=== PATIENT | male | born 1965 | race African-American/Black ===

== ENCOUNTER 2017-02-20 09:54 | Day surgery (SDC) | payer OTHER ==
[~2017-02-20] VITALS: Ht 162.6 cm; Wt 56.7 kg
[~2017-02-20 09:54] MED LIST: ENDOCET 5-3251 EACH PO; NEURONTIN100 MG PO
== END 2017-02-20 11:10 | disposition home or self-care (01) ==
LOC: PAIN 09:54 → SDC 10:15 → PAIN 11:10
DX: M54.2 Cervicalgia (principal); Z53.8 Procedure and treatment not carried out for other reasons
CPT/HCPCS: J1100

== ENCOUNTER → 2017-03-14 | Outpatient (CLI) | payer OTHER | END | disposition home or self-care (01) | LOC: MRI 10:30 → RAD 11:00 → MRI 11:00 | DX: M47.892 Other spondylosis, cervical region (principal); M48.02 Spinal stenosis, cervical region | CPT/HCPCS: 72141 ==

== ENCOUNTER 2017-03-23 09:51 | Day surgery (SDC) | payer OTHER ==
[~2017-03-23] VITALS: Ht 162.6 cm; Wt 57.2 kg
== END 2017-03-23 11:42 | disposition home or self-care (01) ==
LOC: PAIN 09:51 → SDC 10:15 → PAIN 11:42
DX: M50.123 Cervical disc disorder at C6-C7 level with radiculopathy (principal); M47.22 Other spondylosis with radiculopathy, cervical region; M48.02 Spinal stenosis, cervical region; M25.78 Osteophyte, vertebrae
CPT/HCPCS: J1100; J2250; J3010

== ENCOUNTER 2017-10-27 22:44 | Emergency (ER) | payer OTHER ==
[~2017-10-27] VITALS: Ht 162.6 cm; Wt 50.4 kg
[2017-10-28 00:47] LABS: BASOPHIL (%) 0.3 % (0-1); EOSINOPHIL (%) 0.5 % (0-5); EOSINOPHIL COUNT 0.1 K/uL (0-0.3); HEMOGLOBIN 11.2 G/DL (12.5-16.6); IMMATURE GRANULOCYTE (%) 0.5 % (0.0-0.7); LYMPHOCYTE (%) 14.9 % (15-42); LYMPHOCYTE COUNT 1.9 K/uL (1.0-2.8); MCH 25.3 PG (29.0-34.0); MCV 79.2 FL (86-99); MONOCYTE COUNT 0.9 K/uL (0-0.8); NEUTROPHIL (%) 76.8 % (45-76); NEUTROPHIL COUNT 9.8 K/uL (1.8-6.4); PLATELET COUNT 286 K/uL (156-360); RBC DIS.WIDTH-SD 37.4 % (39-53); RED BLOOD COUNT 4.42 M/uL (4.00-5.50); WHITE BLOOD COUNT 12.8 K/uL (4.1-10.2)
[2017-10-28 00:56] LABS: CHLORIDE 105 mEq/L (99-109); POTASSIUM 3.5 mEq/L (3.7-5.4); SODIUM 140 mEq/L (136-147)
[2017-10-28 00:58] LABS: GLUCOSE 97 mg/dL (70-99)
[2017-10-28 01:02] LABS: GFR ESTIMATE (CALCULATED) > 59 mL/min/ (58.99-99999)
[2017-10-28 01:03] LABS: UREA NITROGEN (BUN) 24 mg/dL (9-23)
[2017-10-28 04:12] LABS: APPEARANCE CLEAR ((CLEAR)); BILIRUBIN NEGATIVE; BLOOD SMALL; COLOR STRAW ((YELLOW)); GLUCOSE (STRIP) NEGATIVE; KETONES 5; LEUKOCYTES NEGATIVE; NITRITE NEGATIVE; PROTEIN (STRIP) NEGATIVE; SPECIFIC GRAVITY 1.038 (1.000-1.030); UROBILINOGEN 0.2 MG/DL (0.2-1.0)
[2017-10-28 04:16] LABS: BACTERIA NONE SEEN /HPF; EPITHELIAL CELLS RARE /HPF; MUCUS TRACE /LPF; RED BLOOD CELLS 0-5 /HPF (0-5); UCUL ADDED? NO; WHITE BLOOD CELLS 0-5 /HPF (0-5)
[2017-10-28] MEDS ORDERED: PERCOCET 5/31 TABLET PO (07:26)
[2017-10-28] MEDS ORDERED: MOTRIN400 MG PO (07:26)
[2017-10-28 08:09] VITALS: BP 145/94
== END 2017-10-28 08:12 | disposition home or self-care (01) ==
LOC: EME → TRA 22:44 → EME 22:44 → EDBD 22:44 → TRA 10-28 08:12
PROVIDERS: Emergency Medicine
PROC: 3E0234Z Introduction of Serum, Toxoid and Vaccine into Muscle, Percutaneous Approach (ICD-10-PCS; principal; 2017-10-27)
DX: S22.42XA Multiple fractures of ribs, left side, initial encounter for closed fracture (principal); S30.810A Abrasion of lower back and pelvis, initial encounter; M54.5 Low back pain; R10.12 Left upper quadrant pain; R40.2412 Glasgow coma scale score 13-15, at arrival to emergency department; Z23 Encounter for immunization; W17.89XA Other fall from one level to another, initial encounter; Y99.0 Civilian activity done for income or pay; E78.5 Hyperlipidemia, unspecified
CPT/HCPCS: 71101; 71260; 74177; 80048; 81003; 83605; 85025; 99281; 99285; J3010; J7040